=== PATIENT | female | born 1935 | race Caucasian/White ===

== ENCOUNTER 2017-08-20 18:41 | Emergency (ER) | payer MEDICARE, BC ==
[2017-08-20] MEDS ORDERED: Lidocaine 1% 20 ML MDV ONE (19:11)
[2017-08-20] MEDS ORDERED: Lidocaine 1% w/Epinephrine 1:100K 30 ML VIAL ONE (19:15)
== END 2017-08-20 20:00 | disposition home or self-care (01) ==
LOC: BURERS 18:41
DX: K91.840 Postprocedural hemorrhage of a digestive system organ or structure following a digestive system procedure (principal); I11.0 Hypertensive heart disease with heart failure; I50.9 Heart failure, unspecified; E78.5 Hyperlipidemia, unspecified
CPT/HCPCS: 99283; J2001

== ENCOUNTER 2018-04-19 09:07 | Emergency (ER) | payer MEDICARE, BC ==
[2018-04-19] MEDS ORDERED: Lidocaine 1% w/Epinephrine 1:100K 30 ML VIAL ONE (09:18)
[2018-04-19] MEDS ORDERED: Adacel (T-DAP) 0.5 ML VIAL ONE (09:20)
[2018-04-19 09:57] LABS: #Basophils 0.1 thou/uL (0.0-0.2); #Eosinphils 0.3 thou/uL (0.0-0.7); #Lymphocytes 1.2 thou/uL (1.20-3.40); #Monocytes 0.8 thou/uL (0.11-0.59); #Neutrophils 5.6 thou/uL (1.40-6.50); %Eosinophils 4.1 % (0.0-10.0); %Lymphocytes 14.4 % (21.0-51.0); %Monocytes 10.4 % (0.0-10.0); Hemoglobin 11.7 g/dL (12.0-16.0); Mean Corpuscular HGB CONC 34.5 g/dL (32.0-36.0); Mean Corpuscular Hemoglobin 30.4 pg (27.0-31.0); Mean Corpuscular Volume 88.2 fL (78.0-98.0); Mean Platelet Volume 8.1 fL (7.4-10.4); Platelet Count 192 thou/uL (130-400); RBC Distribution Width 12.6 % (11.5-14.5); Red Blood Cell (RBC) Count 3.84 mill/uL (4.20-5.40)
[2018-04-19 10:05] LABS: ALT (SGPT) 17 U/L (8-55); AST (SGOT) 24 U/L (5-34); Albumin 4.1 g/dL (3.4-4.8); Alkaline Phosphatase 96 U/L (40-150); Anion Gap 14 mmol/L (10-20); BUN (Urea Nitrogen) 24 mg/dL (9.8-20.1); Bilirubin, Total 0.5 mg/dL (0.2-1.2); Calc. Creatinine Clearance 0 mL/min (70-130); Carbon Dioxide 32 mmol/L (23-31); Chloride 98 mmol/L (98-107); Estimated GFR-MDRD 67; Globulin 3.3 g/dL (2.4-3.5); Glucose 139 mg/dL (83-110); Potassium 3.7 mmol/L (3.5-5.1); Protein, Total 7.4 g/dL (6.0-8.3); Sodium 140 mmol/L (136-145)
--- NOTE | 2018-04-19 16:23 | CT ---
CT OF THE BRAIN WITHOUT CONTRAST 04/19/18 Comparison is made with the 08/02/16 study. There has been no adverse interval change. The ventricles are normal in size for age and atrophy. 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 There is no sign of intracranial bleeding or extra-axial hematoma. No acute stroke, mass, or edema was appreciated. The skull shows no fracture . The sphenoid sinus and mastoid air cells are clear. IMPRESSION: No acute intracranial finding. POS: HOME
--- NOTE | 2018-04-19 16:28 | RAD ---
LEFT LEG TWO VIEWS: 04/19/18 Some soft tissue swelling is seen in the leg but no fracture or opaque foreign body was seen. Some p eriosteal prominence of the distal tibia and fibula appear longstanding. No opaque foreign bodies wer e seen. IMPRESSION: No acute bony finding. POS: HOME
--- NOTE | 2018-04-19 16:41 | CT ---
CT OF THE CERVICAL SPINE WITHOUT CONTRAST 04/19/[address] of the cervical spine was performed following trauma. Axial slices were acquired, then maria teresa nal and sagittal reconstructions were done. No fracture, dislocation, or soft tissue swelling was seen. The C1 to dens distance is normal. There is disc space narrowing at C5-C6 with osteophytes both anteriorly and posteriorly here. There is scl erosis of the adjacent end plates. There is some mild loss of the normal cervical lordosis which may be due to muscle spasm, or this could be the patient's norm. Findings by level follow: C1-C2: No acute findings. C2-C3: Bilateral facet arthritis. Mild right foraminal stenosis. C3-C4: Mild right foraminal stenosis and mild left foraminal stenosis with bilateral facet arthritis, worse on the left. Clips are noted around the left carotid sheath at this level. C4-C5: Bilateral facet arthritis with minimal foraminal narrowing, mainly on the right. C5-C6: Moderate right foraminal narrowing and mild to moderate left foraminal narrowing due to arthri tic changes. Some posterior osteophytes slightly efface the thecal sac but there is no gross central canal stenosis. The right lateral recess is narrowed; however. C6-C7: Mild right foraminal narrowing. C7-T1: No acute findings. T1-T2: No acute findings. T2-T3: No acute findings. The lung apices are clear. The lungs appear fully inflated. There are nodular densities in the thyro id gland bilaterally, larger on the right than the left. Some may be cystic. The multinodular nature of the findings makes a benign entity more likely than not. These nodules were present on a prior [facility] 08/02/16 and appear grossly the same. IMPRESSION: 1. Extensive degenerative changes but no acute traumatic findings. 2. Multiple bilateral thyroid nodules, roughly the same as a 2017 scan. POS: HOME
--- NOTE | 2018-04-19 16:43 | RAD ---
LEFT SHOULDER THREE VIEWS: 04/19/18 No fracture, dislocation, or AC joint offset was seen. On one view, the width of the AC joint was upp er normal and on another view it was narrowed. This is probably projectional in nature. If there is p oint tenderness here, then views with and without weights would be needed. There is a small divot in the superior surface of the acromion near the AC joint, probably not acute. The visible adjacent ribs appear clear. IMPRESSION: Probably no acute findings. If there is pain in or around the AC joint, consider AC joint views with and without weights. Code T POS: HOME
== END 2018-04-19 10:57 | disposition home or self-care (01) ==
LOC: BURERS 09:07
DX: S81.812A Laceration without foreign body, left lower leg, initial encounter (principal); T14.8XXA Other injury of unspecified body region, initial encounter; E11.9 Type 2 diabetes mellitus without complications; I11.0 Hypertensive heart disease with heart failure; I50.9 Heart failure, unspecified; E78.5 Hyperlipidemia, unspecified; Z79.899 Other long term (current) drug therapy; Z79.82 Long term (current) use of aspirin; W45.8XXA Other foreign body or object entering through skin, initial encounter
CPT/HCPCS: 12002; 36415; 70450; 72125; 80053; 85025; 90471; 90715; J2001

== ENCOUNTER 2018-07-21 10:47 | Emergency (ER) | payer MEDICARE, BC | END 2018-07-21 11:25 | disposition home or self-care (01) | LOC: BURERS 10:47 | DX: S16.1XXA Strain of muscle, fascia and tendon at neck level, initial encounter (principal); I11.0 Hypertensive heart disease with heart failure; I50.9 Heart failure, unspecified; E11.9 Type 2 diabetes mellitus without complications; E78.5 Hyperlipidemia, unspecified; X58.XXXA Exposure to other specified factors, initial encounter | CPT/HCPCS: 99283 ==

== ENCOUNTER 2018-09-09 15:02 | Outpatient (CLI) | payer MEDICARE, BC ==
--- NOTE | 2018-09-09 19:58 | RAD ---
CERVICAL SPINE TWO VIEWS: 09/09/18 Comparison is made with a cervical spine CT done on 04/19/18. That scan showed considerable degenerat andreina change with intense degenerative disc disease changes at C5-C6. On that scan, there was a 1 to 2 mm off-set of C4 on C5 which was not of any real concern. On today's two view plain film study, the lateral view is done with the neck in flexion. There is a m arked anterior subluxation of C4 on C5. While the films are not optimal, the amount seems to be all o f 1 cm of displacement anteriorly. The degenerative disc disease at C5-C6 is noted as usual. Very min imal anterior off-set of C3 on C4 is what one might expect with flexion of the neck. There is no real soft tissue swelling. I do not see a fracture. The amount of off-set is very concerning and leads me to believe that the neck may be unstable. Better quality flexion and extension lateral views may be helpful. IMPRESSION: 1. 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 I am concerned about the stability of the cervical spine. 2. Severe degenerative disc changes and arthritic changes at C5-C6. Findings discussed with Dr. Zhu at 1943 on 09/10/18. Code CR POS: HOME
== END 2018-09-09 15:03 | disposition home or self-care (01) ==
LOC: BURRAD 15:02
PROVIDERS: ATTEND Family Medicine
DX: M54.2 Cervicalgia (principal); G89.29 Other chronic pain; M43.6 Torticollis; M47.812 Spondylosis without myelopathy or radiculopathy, cervical region; M50.322 Other cervical disc degeneration at C5-C6 level
CPT/HCPCS: 72040

== ENCOUNTER 2018-11-18 12:46 | Outpatient (CLI) | payer MEDICARE, BC ==
--- NOTE | 2018-11-18 18:12 | CT ---
CT OF THE CERVICAL SPINE 11/18/18 Comparison is made with the prior CT dated 04/19/18. There has been a significant interval change. There has been an anterior compression of the C6 verte brae compared to before. The vertebrae is now more sclerotic and there is a resultant kyphotic deform ity at the C5-C6 level. The end plate of C5 is sclerotic as well. A large anterior osteophytes presen t here as before. Findings by level follow: C1-C2: No acute findings. C2-C3: Level difficult to assess due to the angulation of the images. No acute findings. C3-C4: Difficult to assess due to the angulation of the scan. C4-C5: Some bilateral foraminal narrowing but not optimally assessed. C5-C6: Bilateral foraminal narrowing worse on the right. The AP diameter of the spinal canal at this level is approximately 1 cm. There is some lateral recess narrowing due to osteophyte on the right si de. C6-C7: Moderate right foraminal narrowing. C7-T1: No acute findings. T1-T2: No acute findings. T2-T3: No acute findings. Lung apices are clear. Nodular densities in the thyroid gland has been commented on before though are a little more difficult to assess and see today. IMPRESSION: Interval anterior collapse of the C6 vertebral body with resulting sclerosis of the bones of C5 and C 6 and a kyphotic deformity of the cervical spine. This represents a change since the prior study. Code T 1. POS: HOME
== END 2018-11-18 12:47 | disposition home or self-care (01) ==
LOC: BURCT 12:46
PROVIDERS: ATTEND Neurological Surgery
DX: M47.812 Spondylosis without myelopathy or radiculopathy, cervical region (principal); M40.292 Other kyphosis, cervical region; G95.89 Other specified diseases of spinal cord
CPT/HCPCS: 72125

== ENCOUNTER 2024-01-10 13:35 | Emergency (ER) | payer MEDICARE | END 2024-01-10 15:00 | disposition home or self-care (01) | LOC: BURERS 13:35 | DX: G47.00 Insomnia, unspecified (principal); I11.0 Hypertensive heart disease with heart failure; I50.9 Heart failure, unspecified; E11.9 Type 2 diabetes mellitus without complications | CPT/HCPCS: 99282 ==

== ENCOUNTER 2024-05-01 17:11 | Emergency (ER) | payer MEDICARE ==
[2024-05-01 17:49] LABS: #Basophils 0.1 thou/uL (0.0-0.2); #Lymphocytes 0.7 thou/uL (1.20-3.40); #Monocytes 1.2 thou/uL (0.11-0.59); #Neutrophils 17.6 thou/uL (1.40-6.50); %Basophils 0.4 % (0.0-1.0); %Eosinophils 0.2 % (0.0-10.0); %Lymphocytes 3.6 % (21.0-51.0); %Monocytes 6.2 % (0.0-10.0); %Neutrophils 89.6 % (42.0-75.0); Hematocrit 34.7 % (36.0-47.0); Hemoglobin 11.8 g/dL (12.0-16.0); Mean Corpuscular HGB CONC 33.9 g/dL (32.0-36.0); Mean Corpuscular Hemoglobin 33.8 pg (27.0-31.0); Mean Corpuscular Volume 99.8 fl (78.0-98.0); Mean Platelet Volume 7.2 fL (7.4-10.4); Platelet Count 242 10x3/uL (130-400); RBC Distribution Width 12.7 % (11.5-14.5); Red Blood Cell (RBC) Count 3.48 mill/uL (4.20-5.40); White Blood Cell (WBC) Count 19.7 10x3/uL (4.8-10.8)
[2024-05-01 18:01] LABS: ALT (SGPT) 22 U/L (8-55); AST (SGOT) 26 U/L (5-34); Albumin 3.6 g/dL (3.4-4.8); Alkaline Phosphatase 141 U/L (40-110); Anion Gap 20 mmol/L (10-20); BUN (Urea Nitrogen) 49 mg/dL (9.8-20.1); Bilirubin, Total 0.6 mg/dL (0.2-1.2); Calc. Creatinine Clearance 0 mL/min (70-130); Calcium 10.6 mg/dL (7.8-10.44); Carbon Dioxide 26 mmol/L (23-31); Chloride 91 mmol/L (98-107); Estimated GFR 33; Globulin 2.8 g/dL (2.4-3.5); Glucose 182 mg/dL (83-110); Lipase 20 U/L (8-78); Potassium 4.1 mmol/L (3.5-5.1); Protein, Total 6.4 g/dL (5.8-8.1); Sodium 133 mmol/L (136-145)
[2024-05-01 18:29] LABS: Bilirubin Negative (Negative); Blood, Urine Trace (Negative); Glucose, Urine (Dipstick) Negative (Negative); Ketone, Urine Negative (Negative); Leukocyte Small (Negative); Nitrite Negative (Negative); Protein, Urine (Dipstick) > or equal to 300 mg/dL (Neg-Trace); Specific Gravity, Urine 1.015 (1.005-1.030); Urobilinogen 0.2 mg/dL (Less than 2)
[2024-05-01 18:30] LABS: Clarity Cloudy (Clear)
[2024-05-01 18:38] LABS: CAUTI Indications for Culture Fever or rigors; RBC/HPF 0-3 HPF (0-3); WBC/HPF Greater than 50 HPF (0-3)
[2024-05-01 18:39] LABS: Bacteria/HPF 2+ HPF (None Seen); Squamous Epithelial None Seen HPF (0-3); Transitional Epithelial 0-3 HPF (None Seen)
[2024-05-01 18:42] LABS: Urine Culture Reflex Yes Yes
[2024-05-01] MEDS ORDERED: cloNIDine 0.1 MG TAB ONE (20:02)
[2024-05-01] MEDS ORDERED: predniSONE 20 MG TAB ONE (21:07)
[2024-05-01] MEDS ORDERED: cefTRIAXone (ROCEPHIN) 1 GM VIAL ONE (21:26)
[2024-05-01] MEDS ORDERED: metroNIDAZOLE 250 MG TAB ONE (21:26)
== END 2024-05-01 22:35 | disposition home or self-care (01) ==
LOC: BURERS 17:11
DX: N39.0 Urinary tract infection, site not specified (principal); E87.20 Acidosis, unspecified; I11.0 Hypertensive heart disease with heart failure; I50.9 Heart failure, unspecified; E11.9 Type 2 diabetes mellitus without complications; E78.5 Hyperlipidemia, unspecified; Z79.899 Other long term (current) drug therapy
CPT/HCPCS: 71045; 74176; 80053; 81001; 83605; 83690; 85025; 87040; 87086; J0696; 36415; 96361; 96365; J7512

== ENCOUNTER 2025-02-26 11:38 | Outpatient (CLI) | payer MEDICARE | END 2025-02-26 11:39 | disposition home or self-care (01) | LOC: BURRAD 11:38 | PROVIDERS: ATTEND Family Medicine | DX: K52.9 Noninfective gastroenteritis and colitis, unspecified (principal); Z87.19 Personal history of other diseases of the digestive system | CPT/HCPCS: 74018 ==

== ENCOUNTER 2025-05-21 11:33 | Outpatient (CLI) | payer MEDICARE | END 2025-05-21 11:34 | disposition home or self-care (01) | LOC: BURRAD 11:33 | PROVIDERS: ATTEND Nurse Practitioner Family | DX: R05.3 Chronic cough (principal); I51.7 Cardiomegaly | CPT/HCPCS: 71046 ==